=== PATIENT | female | born 1950 | race Caucasian/White ===

== ENCOUNTER 2021-11-16 15:11 | Emergency (ER) | payer MEDICARE ==
[~2021-11-16] VITALS: Ht 162.6 cm; Wt 66.6 kg
--- NOTE | 2021-11-16 15:42 | PHYS DOC ---
Adult General Chief Complaint Chief Complaint: NAUSEA/VOMITING/DIARRHEA HPI HPI Patient is a 71-year-old female who past medical history of migraines who presents with a chief complaint migraine that started yesterday morning when she woke up, whole head, 6 out of 10, dull and achy in nature with some mild photophobia, no phonophobia and multiple episodes of nausea and vomiting. States that she does get migraines a few times a month and this 1 feels similar but it usually goes away before this. Denies any recent travels, traumas, illnesses, fevers, chest pain, shortness of breath, abdominal pain, dysuria, hematuria, blood in the stool or diarrhea. States she has had all 3 Moderna COVID vaccinations. Denies any known ill contacts. Denies any numbness/weakness/tingling. Review of Systems Review of Systems Review of systems otherwise unremarkable except noted in HPI Allergies Allergies Allergies Coded Allergies Type Severity Reaction Last Updated Verified No Known Drug Allergies 11/16/21 No Physical Exam Physical Exam Constitutional: Well developed, well nourished, no acute distress, non-toxic appearance. [] HENT: Normocephalic, atraumatic, bilateral external ears normal, oropharynx moist, no oral exudates, nose normal. [] Eyes: PERRLA, EOMI, conjunctiva normal, no discharge. [] Neck: Normal range of motion, no tenderness, supple, no stridor. [] Cardiovascular:Heart rate regular rhythm, no murmur [] Lungs & Thorax: Bilateral breath sounds clear to auscultation [] Abdomen: soft, no tenderness, no masses, no pulsatile masses. [] Skin: Warm, dry, no erythema, no rash. [] Back: No tenderness, no CVA tenderness. [] Extremities: No tenderness, no cyanosis, no clubbing, ROM intact, no edema. [] Neurologic: Alert and oriented X 3, normal motor function, normal sensory function, able to sit, stand and walk without issue, no focal deficits noted. [] Psychologic: Affect normal, judgement normal, mood normal. [] EKG EKG [] Radiology/Procedures Radiology/Procedures [] Heart Score C/O Chest Pain: No Risk Factors: Risk Factors: DM, Current or recent (<one month) smoker, HTN, HLP, family history of CAD, obesity. Risk Scores: Risk Factors: DM, Current or recent (<one month) smoker, HTN, HLP, family history of CAD, obesity. Course & Med Decision Making Course & Med Decision Making Patient is a 71-year-old female who presents with a chief complaint of migraine associated with nausea and vomiting Vital signs nonconcerning. Physical exam noted above. Placed on the monitor with IV access established and IV fluid begun. Given headache cocktail. EKG with a rate of 71, QRS of 74, QTc of 431, normal STEMI. Chest x-ray not concerning. CT of the head nonconcerning. On reassessment patient feeling significantly better and ready to be discharged home. Discussed symptomatic treatment at home. Advised to follow-up with primary care physician on Wednesday. Patient grateful, verbalized understanding and agreed with plan of discharge. Dragon Disclaimer Dragon Disclaimer This electronic medical record was generated, in whole or in part, using a voice recognition dictation system. Departure Departure: Impression: Primary Impression: Migraine Additional Impression: Nausea & vomiting Disposition: HOME / SELF CARE / HOMELESS Condition: STABLE Referrals: JHON ROSS MD (PCP) Patient Instructions: General Headache Without Cause, Nausea, Adult Additional Instructions: Thank you for coming into the emergency department tonight and allowing us to take care of you. Please read the attached information carefully to go over things we discussed. You can continue Tylenol, ibuprofen and Benadryl at home as needed as we discussed. Over the next day or 2 please eat a light clear diet with plenty of fluids. Please follow-up with your primary care physician on Wednesday to update on your ED visit and set up a follow-up as soon as you can. Please come back with new or concerning symptoms as discussed Problem Qualifiers JOSEPH LO MD Nov 16, 2021 15:42
[2021-11-16] MEDS ORDERED: IV RINGERS SOLUTION,LACTATED 1,000 ML IV ONE (15:45)
[2021-11-16] MEDS ORDERED: diphenhydrAMINE HCL 25 MG CAPSULE PO ONE (15:45)
[2021-11-16] MEDS ORDERED: ACETAMINOPHEN 500 MG TABLET PO ONE (15:45)
[2021-11-16] MEDS ORDERED: PROCHLORPERAZINE 10 MG/2 ML VIAL. IV ONE (15:45)
[2021-11-16 15:50] VITALS: BP 129/61
--- NOTE | 2021-11-16 15:51 | EKG ---
[address] [address] Test Date: 2021-11-16 Test Time: 15:44:46 Pat Name: HOUSTON LEÓN Department: Room: Gender: F Medical Tech: KAT : 1950 Requested By: JOSEPH LO Order Number: [id number] Reading MD: Measurements Intervals [place] Rate: 71 P: 38 NH: 160 QRS: -8 QRSD: 74 T: 19 QT: 392 QTc: 431 Interpretive Statements SINUS RHYTHM LEFTWARD AXIS OTHERWISE NORMAL ECG RI6.02 No previous ECG available for comparison
--- NOTE | 2021-11-16 15:51 | RAD ---
EXAMINATION: Chest radiograph. VIEWS: 1 COMPARISON: None INDICATION:71 years, Female, chest pain. FINDINGS: Normal cardiomediastinal silhouette. No focal consolidation. No pleural effusion or pneumothorax. No acute osseous process. IMPRESSION: No acute cardiopulmonary process. Electronically signed by: Ct Mcgill MD (11/16/2021 3:48 PM) [id number]
--- NOTE | 2021-11-16 16:24 | RAD ---
Exam Date: 11/16/2021 3:[address] HEAD/BRAIN WO Indication: Reason: Headache, nausea/vomit-HX OF MIGRAINES, LIGHT AND SOUND SENSITIVI / Spl. Instruct ions: / History: . TECHNIQUE: Head CT was performed without intravenous contrast. One or more of the following dose re duction techniques were utilized: *Automated exposure control (AEC) *Adjustment of mA and/or kV according to patient size *Use of iterative reconstruction technique *CT scan done according to ALARA, or ALARA/IMAGE GENTLY FINDINGS: The ventricles and sulci are normal for the patient's stated age. There is no evidence of acute int racranial hemorrhage, extra-axial collection, mass effect, midline shift, or acute territorial infarc t. No lesion of the skull base or the calvarium is seen. The visualized paranasal sinuses, mastoid ai r cells and orbits are normal in appearance. IMPRESSION: No evidence for acute intracranial abnormality. Electronically signed by: Guillermo Tamez MD (11/16/2021 4:22 PM) [facility]
== END 2021-11-16 17:05 | disposition home or self-care (01) ==
LOC: ER 15:11
DX: U07.1 COVID-19 (principal); G43.909 Migraine, unspecified, not intractable, without status migrainosus; R11.2 Nausea with vomiting, unspecified
CPT/HCPCS: 70450; 71045; 84484; 93005; 96361; 96374; 99285; C9803; J0780; J7120; Q0163; U0003